=== PATIENT | female | born 1965 | race Hispanic/Latino ===

== ENCOUNTER → 2020-10-29 | Outpatient (CLI) | payer OTHER | LOC: MRI 10:49 | PROVIDERS: ATTEND Family Medicine | DX: M41.9 Scoliosis, unspecified (principal) | CPT/HCPCS: 72146; 77067; 77080 ==

== ENCOUNTER → 2021-11-27 | Outpatient (CLI) | payer OTHER ==
[~2021-11-27] MED LIST: GADOBENATE DIMEGLUMINE 1 ML IV ONE
== END ==
LOC: MRI 06:16
PROVIDERS: ATTEND Family Medicine
DX: M54.2 Cervicalgia (principal); R51.9 Headache, unspecified
CPT/HCPCS: 70553